=== PATIENT | male | born 1985 | race Caucasian/White ===

== ENCOUNTER 2024-04-16 09:30 | Emergency (ER) | payer OTHER, SELFPAY ==
--- NOTE | 2024-04-16 09:35 | ED_ITS ---
HPI - URI/Sore Throat General Chief Complaint: Upper Respiratory Infection Stated Complaint: flu symptoms Time Seen by Provider: 04/16/24 09:35 Source: patient Mode of arrival: ambulatory Limitations: no limitations History of Present Illness HPI Narrative: Kevon is a 39-year-old male patient presenting to the clinic today with complaints of possible flu like symptoms. He reports he has nausea, body aches, chills, fever, and cough. States symptoms have been going on for approximately 2 days. He denies any chest pain or shortness of breath. MD elicited complaint: fever, cough and nasal congestion Related Data Allergies Allergy/AdvReac Type Severity Reaction Status Date / Time No Known Allergies Allergy Verified 04/16/24 09:41 Review of Systems Review of Systems: Pertinent positives per HPI. Patient denies any rash, headache, visual changes, dizziness, shortness of breath, chest pain, palpitations, nausea, vomiting, diarrhea, constipation, abdominal pain, or any urinary issues. PMFSH Comments At the time of my signature, I reviewed and agree with the nursing past medical, surgical, social, and family history. There is no relevant family history pertinent to the patient complaint. Exam Narrative: General: Well-developed, well nourished, in no apparent distress Head: Normocephalic, atraumatic Eyes: Pupils equally round and reactive to light bilaterally, EOM intact, sclera and conjunctive clear, no discharge, lids normal Ears: TMs intact and clear, ear canals clear, no drainage, grossly hearing normal. Nose: Nares patent, clear nasal discharge, no inflammation, no sinus tenderness. Mouth: Oral pharynx without lesions or masses, good dentition, MMM. Postnasal drip Neck: Supple, trachea midline, no enlargement of anterior or posterior cervical nodes, no thyroid masses or goiter palpable. Cardio: Regular rate and rhythm, s1 and s2 normal, no murmur appreciated. Resp: Clear to auscultation bilaterally, no rhonchi, rales, wheezing or rubs Course Course Emergency Course: Portions of this record may have been created with voice recognition software. Level of Care: Express Care Visit Vital Signs Vital signs: Vital Signs Temperature 37.8 C H 04/16/24 09:42 Pulse Rate 79 04/16/24 09:42 Respiratory Rate 18 04/16/24 09:42 Blood Pressure 118/59 L 04/16/24 09:42 Pulse Oximetry 100 04/16/24 09:42 Oxygen Delivery Room Air 04/16/24 09:42 Temperature 37.8 C H 04/16/24 09:42 Pulse Rate 79 04/16/24 09:42 Respiratory Rate 18 04/16/24 09:42 Blood Pressure 118/59 L 04/16/24 09:42 Pulse Oximetry 100 04/16/24 09:42 Oxygen Delivery Room Air 04/16/24 09:42 Vital signs reviewed MDM - URI/Sore Throat MDM Narrative Medical decision making narrative: At the time of visit patient is resting comfortably on the exam table. Patient appears to be nontoxic. Labs: Influenza testing was positive for influenza A. Plan: Patient has influenza A he. Prescription for Tamiflu was sent to the pharmacy. Risk and benefits of this medication was reviewed with the patient he voiced understanding and would like this medication prescribed. Supportive measures were discussed with the patient and they voiced understanding discharge instructions and agrees to treatment plan. Return precautions reviewed Differential Diagnosis Differential diagnosis: Likely upper respiratory infection, otitis media, sinusitis, viral infection, bronchitis, influenza, pharyngitis and other (COVID) Discharge Plan Discharge Clinical Impression: Influenza A Patient Disposition: Home, Self-Care Condition: Stable Instructions: Antibiotic Form, Influenza (ED) Additional Instructions: Influenza A testing was positive in the clinic today. Take prescription medications only as prescribed- Tamiflu Increase fluids and stay well hydrated Tylenol/motrin for pain/fever Flonase and OTC antihistamines as directed Vicks vapor rub to open sinuses Sinus rinses for congestion Cepacol spray, cough drops, throat lozenges, warm tea with honey/lemon, gargle salt water to soothe throat BRAT diet for diarrhea Clear liquids x 24 hours then advance as tolerated for nausea/vomiting Go to the ED if you develop a worsening in your condition- high fever not controlled by Tylenol or Motrin, dehydration, weakness, lethargy, shortness of breath, or chest pain. Follow up with your PCP in 3-5 days if symptoms persist. Patient Language: New Zealander Prescriptions: New oseltamivir [Tamiflu] 75 mg capsule 75 mg PO Q12H 5 Days Qty: 10 0RF Follow-up/Referrals: Rhonda,DO Maria De Jesus [Primary Care Provider] - Time of Disposition: 09:49 Quality NIHSS Nursing Documentation ED NIHSS nursing documentation: reviewed/agree
[2024-04-16 09:42] VITALS: BP 118/59; PULSE 79; RESP 18; TEMP 37.8; O2SAT 100
--- OUTSIDE RECORDS SUMMARY | 2024-04-16 09:52 | XMS_ITS | Patient Health Summary ---
Author Organization [facility] Address [address] [place] [address] Care Team Providers Care Buildings And Grounds Director Name Role Phone Unavailable Primary Care Provider Unavailabl e Note from [facility],non-owned Affiliates and Associated Physician Practices is amultiple site organization consisting of ambulatory clinics and hospital sitesin [place], [place], [place] and [place]. This disclosure is being madepursuant to the Care Everywhere program and may not contain all information available regarding this patient. Last updated 17.[facility] Social History Tobacco Use Types Packs/Day Years Used Date Smoking Tobacco: Never Assessed Sex and Gender Information Value Date Recorded Sex Assigned at Not on file Gender Identity Not on file Sexual Orientation Not on file
--- OUTSIDE RECORDS SUMMARY | 2024-04-16 09:52 | XMS_ITS | Referral Summary ---
Author Organization [facility] Address [address] [place] [address] Care Team Providers Care Nursing Tech Name Role Phone Unavailable Primary Care Provider Unavailabl e Source Comments [facility],non-owned Affiliates and Associated Physician Practices is amultiple site organization consisting of ambulatory clinics and hospital sitesin [place], [place], [place] and [place]. This disclosure is being madepursuant to the Care Everywhere program and may not contain all information available regarding this patient. Last updated 17.[facility] [employer] Social History Tobacco Use Types Packs/Day Years Used Date Smoking Tobacco: Never Assessed Sex and Gender Information Value Date Recorded Sex Assigned at Not on file Gender Identity Not on file Sexual Orientation Not on file Plan of Treatment Not on file
--- OUTSIDE RECORDS SUMMARY | 2024-04-16 09:52 | XMS_ITS | Encounter Summary ---
Author Organization [facility] Address [facility] [place] [address] Care Team Providers Care Oysterman Name Role Phone Marjorie Hurt MD Unavailable Satya Riley DO Primary Care Provider [phone] Maria De Jesus Ellis DO Primary Care Provider [phone] Encounter Details Date Type Department Care Team (Late st Contact Info) Description 08/19/2020 VILOOP Message Enc [facility] Medical Group Multispecialty Care - [facility] [address], [address] [place] [address] [employer] [employer], [facility] Provider appointment Social History Tobacco Use Types Packs/Day Years Used Date Smoking Tobacco: Never Smokeless Tobacco: Never Alcohol Use Standard Drinks/Week Comments Yes 6 (1 standard drink = 0.6 oz pur e alcohol) PHQ-2 Answer Date Recorded PHQ-2 Score - If the patient scores above 3, please move on to questions 3-9 0 11/05/2019 Sex and Gender Information Value Date Recorded Sex Assigned at Not on file Legal Sex Male 6:16 PM CDT Gender Identity Not on file Sexual Orientation Not on file Occupation Industry Job Start Date Job End Date Not on file Not on file Not on file Not on file COVID-19 Exposure Response Date Recorded In the last month, have you been in contact with someone who was confirmed or suspected to have Coronavirus / COVID-19? No / Unsure 07/28/2020 8:24 AM CDT documented as of this encounter Functional Status * RETIRED Are you deaf or do you have serious difficulty hearing Answer Date of Assessment Author Status No 11/26/2019 11:00 PM CDT Acti ve * RETIRED Are you blind or do you have serious difficulty seeing, even when wearing glasses? Answer Date of Assessment Author Status No 11/26/2019 11:00 PM CDT Acti ve * Do you have serious difficulty walking or climbing stairs? Answer Date of Assessment Author Status No 11/26/2019 11:00 PM CDT Faiza Crews RN Active * Do you have difficulty dressing or bathing? Answer Date of Assessment Author Status No 11/26/2019 11:00 PM CDT Faiza Crews RN Active * Because of a physical, mental, or emotional condition, do you have difficulty doing errands alone such as visiting a doctor's office or shopping? Answer Date of Assessment Author Status No 11/26/2019 11:00 PM CDT Faiza Crews RN Active documented as of this encounter Mental Status * Because of a physical, mental, or emotional condition, do you have serious difficulty concentrating, remembering, or making decisions? Answer Entry Date Author Status No 11/26/2019 11:00 PM CDT Faiza Crews RN Active documented in this encounter Plan of Treatment Upcoming Encounters Date Type Department Care Team (Late st Contact Info) Description 11/09/2024 8:00 AM CDT Office Visit [facility] THREE [facility], [address] [place], [place] [phone] Marjorie Hurt MD [facility]. 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 [address] [place], [place] [phone] PCP - General FAMILY PRACTICE 05/08/19 02/20/22 Maria De Jesus Ellis DO [address] [place] [address] PCP - General FAMILY PRACTICE 03/29/22 Marjorie Hurt MD [facility]. [place] [id number] [place], [place] [phone] EP Screen Printing Press Operator CLINICAL CARDIAC ELECTROPHYSIOLOGY 02/21/17 documented as of this encounter
--- OUTSIDE RECORDS SUMMARY | 2024-04-16 09:52 | XMS_ITS | Encounter Summary ---
Author Organization [facility] Address [facility] [place] [address] Care Team Providers Care Store Cashier Name Role Phone Marjorie Hurt MD Unavailable Satya Riley DO Primary Care Provider [phone] Maria De Jesus Ellis DO Primary Care Provider [phone] Encounter Details Date Type Department Care Team (Late st Contact Info) Description 12/20/2019 [employer] Message Enc [facility] Physical Therapy [address] [place] [address] Mandi Lombardo, PT [place], [place] [phone] RE: Other Social History Tobacco Use Types Packs/Day Years [...] have Coronavirus / COVID-19? No / Unsure 12/22/2019 9:27 AM CDT documented as of this encounter [...] CDT Office Visit [facility], [facility] [address] [place] [address] Marjorie Hurt MD Three [facility]. 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 [address] [place], [place] [phone] PCP - General FAMILY PRACTICE 05/08/19 02/20/22 Maria De Jesus Ellis DO [address] [place], [place] [phone] PCP - General FAMILY PRACTICE 03/29/22 Marjorie Hurt MD [address] [place], [place] [phone] EP Bessemer Converter Operator CLINICAL CARDIAC ELECTROPHYSIOLOGY 02/21/17 documented as of this encounter
--- OUTSIDE RECORDS SUMMARY | 2024-04-16 09:52 | XMS_ITS | Encounter Summary ---
Author Organization [facility] Address [address] [place] [address] Care Team Providers Care Business Performance Advisor Name Role Phone Marjorie Hurt MD Unavailable Satya Riley DO Primary Care Provider [phone] Maria De Jesus Ellis DO Primary Care Provider [phone] Encounter Details Date Type Department Care Team (Late st Contact Info) Description 12/28/2019 Car Rentals Market Message Enc [facility] Medical Group Family Medicine - [place] [address], [address] [place] [address] Satya Riley, DO [address] [place], [place] [phone] RE: Medication Questions Social History Tobacco Use Types Packs/Day Years [...] have Coronavirus / COVID-19? No / Unsure 12/31/2019 9:30 AM CDT documented as of this encounter [...] Crews RN Active documented in this encounter Progress Notes * Satya Riley DO - 12/29/2019 7:49 AM CDT Ariadna, Please look into this prior auth today as a priority. Thank you. documented in this encounter Plan of Treatment Upcoming Encounters Date Type Department Care Team (Late st Contact Info) Description 11/09/2024 8:00 AM CDT Office Visit [facility], [address] [place] [address] Marjorie Hurt MD Three [facility]. 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 [address] [phone] PCP - General FAMILY PRACTICE 05/08/19 02/20/22 [place] [address] [place] [phone] PCP - General FAMILY PRACTICE 03/29/22 Marjorie Hurt MD [facility]. [address] [address] EP Email Manager CLINICAL CARDIAC ELECTROPHYSIOLOGY 02/21/17 documented as of this encounter
--- OUTSIDE RECORDS SUMMARY | 2024-04-16 09:52 | XMS_ITS | Encounter Summary ---
Author Organization [facility] Address [facility] [place] [address] Care Team Providers Care Parachute Crown Sewer Name Role Phone Marjorie Hurt MD Unavailable Maria De Jesus Ellis DO Primary Care Provider [phone] Encounter Details Date Type Department Care Team (Late st Contact Info) Description 03/18/2023 Nativis Message Enc [facility] Medical Group Family Medicine - [place] [address] [facility] [place] [phone] Maria De Jesus Ellis DO [address] [place] [address] Rashy eyes Social History Tobacco Use Types Packs/Day Years Used Date Smoking Tobacco: Never Passive Smoke Exposure: Past Smokeless Tobacco: Never Comments:The provider can pr ovide you with more information about quitting. Alcohol Use Standard Drinks/Week Comments Yes 6.7 (1 standard drink = 0.6 oz p ure alcohol) PHQ-2 Answer Date Recorded Patient Health Questionnaire-2 Score 0 03/18/2023 Sex and Gender Information Value Date Recorded Sex Assigned at Not on file Legal Sex Male 6:16 PM CDT Gender Identity Not on file Sexual Orientation Not on file Occupation Industry Job Start Date Job End Date Not on file Not on file Not on file Not on file documented as of this encounter Functional Status [...] Assessment Author Status No 11/26/2019 11:00 PM FAMILIAT Faiza Crews RN Active * Do you [...] Date Author Status No 11/26/2019 11:00 PM FAMILIAT Faiza Crews RN Active documented in this encounter Plan of Treatment Upcoming Encounters Date Type Department Care Team (Late st Contact Info) Description 11/09/2024 8:00 AM CDT Office Visit [facility] [address] [place], [place] [phone] Marjorie Hurt MD [facility]. [facility] [address] [place], [place] [address] documented as of this encounter Visit Diagnoses Not on filedocumented in this encounter Additional Health Concerns Assessment Noted Time PHQ-9 Depression Total Score: 0 03/18/19 24 1:37 PM ADMISSION DISCHARGE RN documented as of this encounter Care Teams Parachute Crown Sewer Relationship Specialty Start Date End Date Maria De Jesus Ellis DO [address] [place] [phone] PCP - General FAMILY PRACTICE 03/29/22 Marjorie Hurt MD [facility]. [place] [id number] [place] [address] EP Injury/Safety Hazard Assessment CLINICAL CARDIAC ELECTROPHYSIOLOGY 02/21/17 documented as of this encounter
--- OUTSIDE RECORDS SUMMARY | 2024-04-16 09:52 | XMS_ITS | Encounter Summary ---
Author Organization [facility] Address [address] [place] [address] Care Team Providers Care Drum Plater Name Role Phone Marjorie Hurt MD Unavailable Maria De Jesus Ellis DO Primary Care Provider [phone] Encounter Details Date Type Department Care Team (Late st Contact Info) Description 01/07/2023 Travelata Message Enc [facility], [address] [place], [place] [phone] Marjorie Hurt MD Three [facility]. [facility] [address] [place] [address] Groin pain Social History Tobacco Use Types Packs/Day Years Used Date Smoking Tobacco: Never Passive Smoke Exposure: Past Smokeless Tobacco: Never Comments:The provider can pr ovide you with more information about quitting. Alcohol Use Standard Drinks/Week Comments Yes 6.7 (1 standard drink = 0.6 oz p ure alcohol) PHQ-2 Answer Date Recorded Patient Health Questionnaire-2 Score 0 04/17/2022 Sex and Gender Information Value Date Recorded [...] PM FAMILIAT Faiza Crews RN Active * Because of a physical, mental, or emotional condition, do you have difficulty doing errands alone such as visiting a doctor's office or shopping? Answer Date of Assessment Author Status No 11/26/2019 11:00 PM Faiza Doe RN Active documented as of this encounter Mental Status * Because of a physical, mental, or emotional condition, do you have serious difficulty concentrating, remembering, or making decisions? Answer Entry Date Author Status No 11/26/2019 11:00 PM Faiza Doe RN Active documented in this encounter Progress Notes * Arabella Parks - 01/10/2023 1:40 PM CST Patient had testing done CISE PLANNER * Arabella Parks - 01/08/2023 2:16 PM CST I left a voicemail for patient asking him to call me to schedule test CISE PLANNER * Kayleigh Latif RN - 01/08/2023 12:11 PM CST I informed the patient of the above information from Keiko QUAN. The patient verbalized understanding. The patient states that he will have throbbing, swelling, and surface irritation to the left groin. I informed the patient that the alumnae secretary will contact him to schedule the ultrasound. The patient had no further questions. Message to the alumnae secretary. CISE PLANNER * Keiko Box PA-C - 01/08/2023 12:02 PM CST We can always check an US of the groin for reassurance but he may just have scar tissue from that procedure which gets irritated off and on. No major concern if that is the case. Luna Aden CISE PLANNER * Kayleigh Latif RN - 01/08/2023 9:29 AM CST I called the patient to follow up on his concerns. I left a voicemail for the patient to call our office. The office number and my extension were provided. Message to Keiko JAMA CISE PLANNER documented in this encounter Plan of Treatment Upcoming Encounters Date Type Department Care Team (Late st Contact Info) Description 11/09/2024 8:00 AM CDT Office Visit [facility] THREE [facility], [address] [place] [address] Marjorie Hurt MD [facility]. [address] [place], [place] [address] documented as of this encounter Visit Diagnoses Not on filedocumented in this encounter Additional Health Concerns Assessment Noted Time PHQ-9 Depression Total Score: 0 04/17/19 8:07 AM EXERCISE PLANNER documented as of this encounter Care Teams Drum Plater Relationship Specialty Start Date End Date Maria De Jesus Ellis DO [address] [place], [place] [phone] PCP - General FAMILY PRACTICE 03/29/22 Marjorie Hurt MD Three [facility]. [address] [place], [place] [address] EP Manager Competitive Intelligence CLINICAL CARDIAC ELECTROPHYSIOLOGY 02/21/17 documented as of this encounter
--- OUTSIDE RECORDS SUMMARY | 2024-04-16 09:52 | XMS_ITS | Clinical Summary ---
Author Organization [facility] Address [address] [place] [address] Care Team Providers Care Fuel Cell Repairer Name Role Phone Marjorie Hurt MD Unavailable Maria De Jesus Ellis DO Primary Care Provider [phone] Allergies Active Allergy Reactions Criticality Noted Date Comments Diphenhydramine Unknown 02/22/2017 Unsure of he is- mom stated he was as child. Had a dose IV and tolerated well, no side effects Medications triamcinolone (KENALOG) 0.1 % creamIndications: Atopic dermatitis, unspecified type Apply topically 2 (two) times daily. Avoid face 80 g 04/17/19 23 Active pimecrolimus (ELIDEL) 1 % creamIndications: Atopic dermatitis, unspecified type Apply topically 2 (two) times daily. 30 g 04/17/19 23 Active cetirizine (ZYRTEC) 10 MG tabletIndications :Atopic dermatitis, unspecified type Take 1 tablet (10 mg total) by mouth daily. 30 tablet 2 04/17/19 23 Active hydrOXYzine (ATARAX) 10 MG tabletIndications :Situational anxiety Take 1 tablet (10 mg total) by mouth daily as needed for Anxiety. 30 tablet 10/24/19 23 Active clobetasol (TEMOVATE) 0.05 % ointmentIndicatio ns:Rash Use on the hands bid for 7 days 45 g 1 03/18/19 24 Active olopatadine (PATADAY) 0.2 % SolutionIndicatio ns:Rash Place 1 drop into both eyes daily. 2.5 mL 03/18/19 24 Active famotidine (PEPCID) 20 MG tabletIndications :Rash TAKE 1 TABLET(20 MG) BY MOUTH TWICE DAILY FOR 10 DAYS 20 tablet 04/05/19 Active meloxicam (MOBIC) 15 MG tablet Take 1 tablet (15 mg total) by mouth daily. with food. 05/17/19 Active TALTZ 80 MG/ML Solution Auto-injector every 28 days. 08/26/19 24 Active flecainide (TAMBOCOR) 50 MG tabletIndications :Mixed hyperlipidemia,PV C (premature ventricular contraction) Take 1 tablet by mouth twice daily 180 tablet 2 03/31/19 25 Active metoprolol succinate ER (TOPROL-XL) 25 MG 24 hr tabletIndications :Mixed hyperlipidemia,PV C (premature ventricular contraction) TAKE 2 TABLETS BY MOUTH IN THE EVENING NEEDED 180 tablet 2 03/31/19 25 Active rosuvastatin (CRESTOR) 20 MG tabletIndications :Mixed hyperlipidemia TAKE 1 TABLET BY MOUTH NIGHTLY AT BEDTIME 90 tablet 2 03/31/19 25 Active omeprazole (PRILOSEC) 40 MG capsule TAKE 1 CAPSULE(40 MG) BY MOUTH DAILY 30 capsule 8 04/06/19 25 Active omeprazole (PRILOSEC) 40 MG capsule Take 1 capsule (40 mg total) by mouth daily. 30 capsule 3 10/28/19 24 025 Discontinued rosuvastatin (CRESTOR) 20 MG tabletIndications :Mixed hyperlipidemia take 1 tablet by mouth nightly at bedtime 90 tablet 12/25/19 24 025 Discontinued metoprolol succinate ER (TOPROL-XL) 25 MG 24 hr tabletIndications :Mixed hyperlipidemia,PV C (premature ventricular contraction) TAKE 2 TABLETS BY MOUTH NIGHTLY NEEDED 180 tablet 12/25/19 24 025 Discontinued flecainide (TAMBOCOR) 50 MG tabletIndications :Mixed hyperlipidemia,PV C (premature ventricular contraction) Take 1 tablet by mouth twice daily 180 tablet 12/25/19 24 025 Discontinued Active Problems Problem Noted Date Diagnosed Date Pes planus of both feet 08/30/2020 Primary osteoarthritis of right knee 04/19/2020 Seasonal allergies 12/08/2019 DVT (deep venous thrombosis) ([facility]) 0 11/24/2019 S/P right knee arthroscopy 11/18/2019 Old peripheral tear of medial meniscus of right knee 11/05/2019 Peripheral tear of medial me niscus of left knee as current injury, initial encounter 09/10/2019 Patellar tendonitis of left knee 09/10/2019 Allergic rhinitis 05/19/2019 Hemorrhoids 05/19/2019 Mixed hyperlipidemia 05/19/2019 Eczema 05/19/2019 Tear of medial meniscus of r ight knee, current, unspecified tear type, initial encounter 08/26/2018 Palpitations 08/21/2016 PVC (premature ventricular contraction) Encounters Date Type Department Care Team Description 03/24/2024 Scan [facility] Scanned, [facility] 02/05/2024 Scan [facility] Scanned, [facility] Lab (SCAN) from Last 3 Months Immunizations Name Administration Dates Next Due Fluzone 6 Months+ Quad (0.5 mL Prefilled Syringe) 12/05/2020,12/08/2019 Influenza (Generic) 12/20/2016,04/26/2016 Influenza Adult (Generic) 01/13/2019,12/27/2017, 12/09/2014 MMR 11/15/1992 MMR (Generic) 11/15/1992 Td (Tenivac) preservative free 10/26/1997 Family History Medical History Relation Comments Cancer Father esophageal Diabetes Father Heart Attack Father Heart Disease Father Hypertension Father Arthritis Mother Diabetes Mother Heart Disease Mother Hypertension Mother Relation Status Comments Father Alive Mother Alive Social History Tobacco Use Types Packs/Day Years Used Date Smoking Tobacco: Never Passive Smoke Exposure: Past Smokeless Tobacco: Never Tobacco Cessation:Counseling Given: No Comments:The provider can provide you with more information about quitting. Alcohol [...] file Not on file Not on file Last Filed Vital Signs Vital Sign Reading Time Taken Comments Blood Pressure 132/84 10/28/2023 9:14 AM CDT Pulse 64 10/28/2023 9:14 AM CDT Temperature 36.5 C (97.7 F) 06/12/2023 7:11 AM CDT Respiratory Rate 16 03/19/2023 10:13 AM BREAKFAST SERVER Oxygen Saturation 97% 10/28/2023 9:14 AM CDT Inhaled Oxygen Concentration - - Weight 90.3 kg (199 lb) 10/28/2023 9:14 AM CDT Height 180.3 cm (5' 11 ) 10/28/2023 9:14 AM CDT Body Mass Index 27.75 10/28/2023 9:14 AM CDT Plan of Treatment Upcoming Encounters Date Type Department Care Team (Late st Contact Info) Description 11/09/2024 8:00 AM CDT Office Visit [facility] [address] [place], [place] [phone] Marjorie Hurt MD Three [facility]. [facility] [address] [place], [place] [phone] Health Maintenance Due Date Last Done Comments Annual Physical 1986 DTaP, Tdap and Td Vaccines (2 - Tdap) 10/27/1997 10/26/1997 Hepatitis B Vaccines (1 of 3 - 19+ 3-dose series) 2002 COVID-19 Vaccine (4 - season) 2023 07/23/2021, 05/31/2020, 05/03/2020 Influenza Adult (#1) 2023 12/05/2020, 12/08/2019, 01/13/2019, Additional history exists PHQ-2 (Physician [place]) 03/04/2024 03/18/2023 Pneumococcal Vaccine: Pediatrics (0 to 5 Years) and At-Risk Patients (6 to 64 Years) (1 of 2 - PCV) 05/11/2048 Postponed from 1989 (Per Provider Recommendation) Hepatitis C Completed 08/22/2022 HPV Vaccines Aged Out No longer eligi ble based on patient's age to complete this topic Meningococcal B Vaccine Aged Out No l onger eligible based on patient's age to complete this topic Meningococcal Vaccine Aged Out No junior cathy eligible based on patient's age to complete this topic RSV Immunizations Under 20 Months Aged Out No longer eligible based on patient's age to complete this topic Medical Devices Implanted Type Area Bevel Operator Device Identifier Shelf Expiration Date Model / Serial / Lot Truespan Meniscal Repair System Implanted:Qty: 1 on 11/18/2019 by Nithin Sewell MD at [facility] Right: Knee [employer] [id number] 06/01/2022 [id number] / / [id number] Truespan Meniscal Repair System Implanted:Qty: 1 on 11/18/2019 by Nithin Sewell MD at [facility] Right: Knee [employer] [id number] 08/01/2022 [id number] / / [id number] Truespan Meniscal Repair System Implanted:Qty: 2 on 11/18/2019 by Nithin Sewell MD at [facility] Right: Knee [employer] 05/01/2022 [id number] / / [id number] Truespan Meniscal Repair System Implanted:Qty: 1 on 11/18/2019 by Nithin Sewell MD at [facility] Right: Knee [employer] 04/03/2022 [id number] / / [id number] [place] Arthrex Pushlock Biocomposite 2.9 X 12.5mm - [id number] Implanted:Qty: 1 on 11/18/2019 by Nithin Sewell MD at [facility] Right: Knee [employer] 08/01/2021 [id number] / / [id number] [place] Arthrex Pushlock Biocomposite 2.9 X 12.5mm - [id number] Implanted:Qty: 1 on 11/18/2019 by Nithin Sewell MD at [facility] Right: Knee [employer] 07/01/2021 [id number] / / [id number] Procedures Procedure Name Priority Date/Time Associated Diagnosis Comments OUTSIDE LAB (SCAN ORDER) 02/05/2024 HEPATITIS PANEL,ACUTE Routine 08/22/2022 4:18 PM CDT Acute diarrhea from Last 3 Months or Most Recently Relevant to Health Maintenance Results * OUTSIDE LAB (SCAN ORDER) (02/05/2024) 02/05/2024 [facility] Scanned SCANNING Final Resu lt * HEPATITIS PANEL,ACUTE (08/22/2022 4:18 PM CDT) HEPATITIS B SURFACE AG NON-REACTI VE NON-REACTI VE 08/22/2022 8:[address] [facility] HEP B CORE IGM NON-REACTI VE NON-REACTI VE 08/22/2022 8:[address] [facility] HAV IGM NON-REACTI VE NON-REACTI VE 08/22/2022 8:[address] [facility] HEPATITIS C AB NON-REACTI VE NON-REACTI VE 08/22/2022 8:[address] [facility] 08/22/2022 4:18 PM CDT us Maria De Jesus Rhonda DO LABORATORY Final Result [facility] [address] [place] [address], [place] [phone] from Last 3 Months or Most Recently Relevant to Health [place] [address] Advance Directives * Full Code (Latest Code Status on File) Date Activated Date Inactivated Comments 11/24/2019 9:10 PM 11/27/2019 3:37 PM * Full Code Date Activated Date Inactivated Comments 08/08/2018 7:14 AM 08/08/2018 1:21 PM Care Teams Fuel Cell Repairer Relationship Specialty Start Date End Date Maria De Jesus Ellis DO [address] [place] [id number] PCP - General FAMILY PRACTICE 03/29/22 Marjorie Hurt MD [facility] [address] [place], [place] [address] EP Tire Tester CLINICAL CARDIAC ELECTROPHYSIOLOGY 02/21/17
--- OUTSIDE RECORDS SUMMARY | 2024-04-16 09:52 | XMS_ITS | Encounter Summary ---
Author Organization [facility] Address [facility] [place] [address] Care Team Providers Care Manager Land Name Role Phone Colleen Cortes NP Primary Care Provider [phone] Marjorie Hurt MD Unavailable Satya Riley DO Primary Care Provider [phone] Maria De Jesus Ellis DO Primary Care Provider [phone] Encounter Details Date Type Department Care Team (Late st Contact Info) Description 07/14/2018 Abstract [facility] at [address] [address] Yulia Zamarripa MA Social History Tobacco Use Types Packs/Day Years Used Date Smoking Tobacco: Never Smokeless Tobacco: Never Alcohol Use Standard Drinks/Week Comments Yes 0 (1 standard drink = 0.6 oz pur e alcohol) 4-6 a week Sex and Gender Information Value Date Recorded Sex Assigned at Not on file Legal Sex Male 6:16 PM CDT Gender Identity Not on file Sexual Orientation Not on file Occupation Industry Job Start Date Job End Date Not on file Not on file Not on file Not on file documented as of this encounter Plan of Treatment Upcoming Encounters Date Type Department Care Team (Late Contact Info) Description 11/09/2024 8:00 AM CDT Office Visit [facility] [address] Marjorie Hurt MD Three [address] [address] documented as of this encounter Procedures Procedure Name Priority Date/Time Associated Diagnosis Comments CBC (OUTSIDE LAB) Routine 01/28/2018 LIPID PANEL Routine 01/28/2018 HEPATIC FUNCTION PANEL Routine 01/28/2018 documented in this encounter Results * HEPATIC FUNCTION PANEL (01/28/2018) ALBUMIN S/P/B 4.7 3.5 - 5.0 ALKALINE PHOSPHATASE S/P/B 38 ALT 56 AST 30 BILIRUBIN DIRECT S/P/B 0.1 BILIRUBIN TOTAL S/P/B 0.7 TOTAL PROTEIN S/P/B 6.8 01/28/2018 us Doc [facility] Abstract LABORATORY Final Result * LIPID PANEL (01/28/2018) CHOLESTEROL 198 HDL 39 TRIGLYCERIDES 195 NON HDL CHOLESTEROL 159 LDL (CALCULATED) 128 01/28/2018 us Doc [facility] Abstract LABORATORY Final Result * CBC (OUTSIDE LAB) (01/28/2018) WBC 4.3 HGB 15.3 HCT 44.4 PLT 233 01/28/2018 us Doc [facility] Abstract LAB-OUTSIDE/ABSTRACTED Edite d Result - Final documented in this encounter Visit Diagnoses Not on filedocumented in this encounter Additional Health Concerns Infection Onset Date Last Indicated Resolved Time COVID-19 Rule Out 11/15/2019 11/15/2019 11/16/2019 3:22 PM CDT COVID-19 Rule Out 03/09/2021 03/09/2021 03/09/2021 2:44 PM FURNITURE MAKER documented as of this encounter Care Teams Manager Land Relationship Specialty Start Date End Date Colleen Cortes NP [address] [place] [address] PCP - General NURSE PRACTITIONER 02/19/17 05/07/19 Satya Riley DO Three [facility]. [facility] [address] [place], [place] [phone] PCP - General FAMILY PRACTICE 05/08/19 02/20/22 Maria De Jesus Ellis DO [address] [place], [place] [phone] PCP - General FAMILY PRACTICE 03/29/22 Marjorie Hurt MD Three [facility]. [facility] [address] [place], [place] [phone] EP Blood And Plasma Laboratory Assistant CLINICAL CARDIAC ELECTROPHYSIOLOGY 02/21/17 documented as of this encounter
--- OUTSIDE RECORDS SUMMARY | 2024-04-16 09:52 | XMS_ITS | Encounter Summary ---
Author Organization [facility] Address [facility] [place] [address] Care Team Providers Care Audiometrist Name Role Phone Marjorie Hurt MD Unavailable Satya Riley DO Primary Care Provider [phone] Maria De Jesus Ellis DO Primary Care Provider [phone] Encounter Details Date Type Department Care Team (Late st Contact Info) Description 11/11/2019 Prep for Procedure [facility] [address] [place] [address] Nithin Sewell MD [address] [address] [place], [place] [phone] Social History Tobacco Use Types Packs/Day Years Used Date Smoking Tobacco: Never Smokeless Tobacco: Never Alcohol Use Standard Drinks/Week Comments Yes 0 (1 standard drink = 0.6 oz pur e alcohol) 4-6 a week PHQ-2 Answer Date Recorded PHQ-2 Score - [...] have Coronavirus / COVID-19? No / Unsure 11/11/2019 11:38 AM CDT documented as of this encounter Functional Status * RETIRED Are you deaf or do you have serious difficulty hearing Answer Date of Assessment Author Status No 08/07/2018 6:23 PM CDT Activ e * RETIRED Are you blind or do you have serious difficulty seeing, even when wearing glasses? Answer Date of Assessment Author Status No 08/07/2018 6:23 PM CDT Activ e * Do you have serious difficulty walking or climbing stairs? Answer Date of Assessment Author Status No 08/07/2018 6:23 PM CDT Narciso Gordon, ADELITA Active * Do you have difficulty dressing or bathing? Answer Date of Assessment Author Status No 08/07/2018 6:23 PM CDT Narciso Gordon, ADELITA Active * Because of a physical, mental, or emotional condition, do you have difficulty doing errands alone such as visiting a doctor's office or shopping? Answer Date of Assessment Author Status No 08/07/2018 6:23 PM CDT Narciso Gordon, RN Active documented as of this encounter Mental Status * Because of a physical, mental, or emotional condition, do you have serious difficulty concentrating, remembering, or making decisions? Answer Entry Date Author Status No 08/07/2018 6:23 PM CDT Narciso Gordon, RN Active documented in this encounter Plan of Treatment Upcoming Encounters Date Type Department Care Team (Late st Contact Info) Description 11/09/2024 8:00 AM CDT Office Visit [facility], [facility] [address] [place] [address] Marjorie Hurt MD [facility]. [facility] [address] [place] [address] documented as of this encounter Results * PRE-SURGICAL/PRE-PROCEDURE CORONAVIRUS (COVID 19) (11/15/2019 10:00 AM CDT) CORONAVIRUS SARS COV 2 PCR (RESP) NOT DETECTED NOT DETECTED 11/16/2019 3:21 PM CDT [facility] Comment: A Not Detected (negative) test result for this test means that SARS- CoV-2 RNA was not present in the specimen above the limit of detection. A negative result does not rule out the possibility of COVID-19 and should not be used as the sole basis for treatment or patient management decisions. If COVID-19 is still suspected, based on exposure history together with other clinical findings, re-testing should be considered in consultation with public health authorities. Laboratory test results should always be considered in the context of clinical observations and epidemiological data in making a final diagnosis and patient management decisions. Please review the Fact Sheets and FDA authorized labeling available for health care providers and patients using the following websites: https://www.Chromatin.Seek & Adore/home/Covid-19/HCP/NAAT/fact-sheet2 https://www.Chromatin.Seek & Adore/home/Covid-19/Patients/NAAT/ fact-sheet2 This test has been authorized by the FDA under an Emergency Use Authorization (EUA) for use by authorized laboratories. Due to the current public health emergency, [facility] is receiving a high volume of samples from a wide variety of swabs and media for COVID-19 testing. In order to serve patients during this public health crisis, samples from appropriate clinical sources are being tested. Negative test results derived from specimens received in non-commercially manufactured viral collection and transport media, or in media and sample collection kits not yet authorized by FDA for COVID-19 testing should be cautiously evaluated and the patient potentially subjected to extra precautions such as additional clinical monitoring, including collection of an additional specimen. Methodology: Nucleic Acid Amplification Test (NAAT) includes PCR or TMA Additional information about COVID-19 can be found at the [facility] website: www.Trendrating.Seek & Adore/Covid19. Test performed at [facility] [address] [place] [address] Director: BRIAN ARNOLD DO,MPH FIRST TEST YES 11/15/2019 8:28 AM CDT [facility] EMPLOYED IN HEALTHCARE NO 11/15/2019 8:28 AM CDT [facility] SYMPTOMATIC DEFINED BY CDC NO 11/15/2019 8:28 AM T [facility] DATE OF SYMPTOM ONSET UNKNOWN 11/15/2019 1:14 PM CDT [facility] HOSPITALIZATION STATUS NO 11/15/2019 8:28 AM CDT [facility] PATIENT IN ICU NO 11/15/2019 8:28 AM CDT [facility] RESIDENT OF CONGREGATE CARE NO 11/15/2019 8:28 AM CDT [facility] NO 11/15/2019 1:14 PM CDT [facility] PATIENT'S RACE WHITE OR 11/15/2019 8:28 AM CDT [facility] ETHNICITY NONHISPANIC 11/15/2019 8:28 AM CDT [facility] SOURCE (QST) NASOPHARYNGEAL SWAB 11/15/2019 8:28 AM CDT [facility] NASOPHARYNGEAL SWAB / Unknown 11/15/2019 10:00 AM CDT us Nithin Sewell MD MICROBIOLOGY - [facility] Final Result [facility] [address] [place] [address], [place] [address] documented in this encounter Visit Diagnoses Diagnosis Preop examination- Primary Preoperative examination, unspecified documented in this encounter Additional Health Concerns Infection Onset Date Last Indicated Resolved Time COVID-19 Rule Out 11/15/2019 11/15/2019 11/16/2019 3:22 PM CDT COVID-19 Rule Out 03/09/2021 03/09/2021 03/09/2021 2:44 PM 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 [facility] [address] [place] [address] PCP - General FAMILY PRACTICE 05/08/19 02/20/22 Maria De Jesus Ellis DO [address] [place] [address] PCP - General FAMILY PRACTICE 03/29/22 Marjorie Hurt MD [facility] [address] [place] [address] EP Emergency Room Rn CLINICAL CARDIAC ELECTROPHYSIOLOGY 02/21/17 documented as of this encounter
--- OUTSIDE RECORDS SUMMARY | 2024-04-16 09:52 | XMS_ITS | Encounter Summary ---
Author Organization [facility] Address [facility] [place] [address] Care Team Providers Care Ornamental Plasterer Helper Name Role Phone Colleen Cortes NP Primary Care Provider [phone] Marjorie Hurt MD Unavailable Satya Riley DO Primary Care Provider [phone] Maria De Jesus Ellis DO Primary Care Provider [phone] Encounter Details Date Type Department Care Team (Late st Contact Info) Description 08/19/2018 niiu Message Enc [facility] at [facility], [facility] [address] [place] [address] Marjorie Hurt MD [facility]. [facility] [address] [place] [address] Test Results Social History Tobacco Use Types Packs/Day Years [...] 6:23 PM CDT Narciso Gordon, RN Active * Do you have difficulty dressing or bathing? Answer Date of Assessment Author Status No 08/07/2018 6:23 PM CDT Narciso Gordon, RN Active * Because of a physical, mental, or emotional condition, do you have difficulty doing errands alone such as visiting a doctor's office or shopping? Answer Date of Assessment Author Status No 08/07/2018 6:23 PM FAMILIAT Narciso Gordon, RN Active documented as of [...] Description 11/09/2024 8:00 AM CDT Office Visit [facility], [facility] [address] [place] [address] Marjorie Hurt MD [facility]. [facility] [address] [place] [address] documented as of this encounter Visit Diagnoses Not on filedocumented in this encounter Additional Health Concerns Infection Onset Date Last Indicated Resolved Time COVID-19 Rule Out 11/15/2019 11/15/2019 11/16/2019 3:22 PM CDT COVID-19 Rule Out 03/09/2021 03/09/2021 03/09/2021 2:44 PM TELEPHONE DIAPHRAGM ASSEMBLER documented as of this encounter Care Teams Ornamental Plasterer Helper Relationship Specialty Start Date End Date Colleen Cortes NP [address] [place] [address] PCP - General NURSE PRACTITIONER 02/19/17 05/07/19 Satya Riley DO Three [facility]. [address] [phone] PCP - General FAMILY PRACTICE 05/08/19 02/20/22 [place] [address] [place] [phone] PCP - General FAMILY PRACTICE 03/29/22 Marjorie Hurt MD [address] [phone] EP Pan Tank Worker CLINICAL CARDIAC ELECTROPHYSIOLOGY 02/21/17 documented as of this encounter
--- OUTSIDE RECORDS SUMMARY | 2024-04-16 09:52 | XMS_ITS | Encounter Summary ---
Author Organization [facility] Address [place] [address] Care Team Providers Care Piledriver Carpenter Name Role Phone Colleen Cortes NP Primary Care Provider [phone] Marjorie Hurt MD Unavailable Satya Riley DO Primary Care Provider [phone] Maria De Jesus Ellis DO Primary Care Provider [phone] Encounter Details Date Type Department Care Team (Late st Contact Info) Description 08/03/2018 Hospital Orders Only [facility] [place] [address] Marjorie Hurt MD Three [facility]. [facility] [address] [place] [address] Social History Tobacco Use Types Packs/Day Years [...] Description 11/09/2024 8:00 AM CDT Office Visit [facility] THREE [facility], [facility] [address] [place], [place] [address] Marjorie Hurt MD Three [facility]. [facility] [address] [place], [place] [address] documented as of this encounter Visit Diagnoses Not on filedocumented in this encounter Additional Health Concerns Infection Onset Date Last Indicated Resolved Time COVID-19 Rule Out 11/15/2019 11/15/2019 11/16/2019 3:22 PM CDT COVID-19 Rule Out 03/09/2021 03/09/2021 03/09/2021 2:44 PM DEMAND PLANNING MANAGER documented as of this encounter Care Teams Piledriver Carpenter Relationship Specialty Start Date End Date Colleen Cortes NP [address] [place] [address] PCP - General NURSE PRACTITIONER 02/19/17 05/07/19 Satya Riley DO Three [facility]. [facility] [address] [place], [place] [address] PCP - General FAMILY PRACTICE 05/08/19 02/20/22 Maria De Jesus Ellis DO [address] [place], [place] [phone] PCP - General FAMILY PRACTICE 03/29/22 Marjorie Hurt MD Three [facility]. [facility] [address] [place], [place] [address] EP Distillery Laborer CLINICAL CARDIAC ELECTROPHYSIOLOGY 02/21/17 documented as of this encounter
--- OUTSIDE RECORDS SUMMARY | 2024-04-16 09:52 | XMS_ITS | Encounter Summary ---
Author Organization [facility] Address [facility] [place] [address] Care Team Providers Care Search Engine Optimization Specialist Name Role Phone Marjorie Hurt MD Unavailable Satya Riley DO Primary Care Provider [phone] Maria De Jesus Ellis DO Primary Care Provider [phone] Encounter Details Date Type Department Care Team (Latest Contact Info) Description 10/18/2020 FamilyApp Message Enc [facility] Medical Group Multispecialty Care - [facility] [address] [facility] [address] [facility] [place] [address] Nithin Sewell MD [address] [facility] [address] [place], [place] [phone] RE: Follow Up/Update Social History Tobacco Use Types Packs/Day Years Used Date Smoking Tobacco: Never Smokeless Tobacco: Never Alcohol Use Standard Drinks/Week Comments Yes 6 (1 standard drink = 0.6 oz pur e alcohol) PHQ-2 Answer Date Recorded PHQ-2 Score - If the patient scores above 3, please move on to questions 3-9 0 08/30/2020 Sex and Gender Information Value Date Recorded [...] have Coronavirus / COVID-19? No / Unsure 10/06/2020 9:30 AM CDT documented as of this [...] 8:00 AM CDT Office Visit [facility] THREE [facility], [facility] [address] [place], [place] [phone] Marjorie Hurt MD Three [facility]. 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 [facility] [address] [place] [address] PCP - General FAMILY PRACTICE 05/08/19 02/20/22 [place] [address] [place] [id number] PCP - General FAMILY PRACTICE 03/29/22 Marjorie Hurt MD [facility]. [facility] [address] [place] [id number] EP Generator Assembler CLINICAL CARDIAC ELECTROPHYSIOLOGY 02/21/17 documented as of this encounter
--- OUTSIDE RECORDS SUMMARY | 2024-04-16 09:52 | XMS_ITS | Encounter Summary ---
Author Organization [facility] Address [facility] [place] [address] Care Team Providers Care Registered Nurse Surgical Services Name Role Phone Marjorie Hurt MD Unavailable Satya Riley DO Primary Care Provider [phone] Maria De Jesus Ellis DO Primary Care Provider [phone] Encounter Details Date Type Department Care Team (Late st Contact Info) Description 03/08/2021 [employer] Message Enc [facility] Medical Group Family Medicine - [place] [address] [place] [phone] Satya Riley, DO [address] [place], [place] [phone] Covid test Social History Tobacco Use Types Packs/Day Years Used Date Smoking Tobacco: Never Smokeless Tobacco: Never Comments:The provider can pr ovide you with more information about quitting. Alcohol Use Standard Drinks/Week Comments Yes 6 (1 standard drink = 0.6 oz pur e alcohol) PHQ-2 Answer Date Recorded PHQ-2 Score - If the patient scores above 3, please move on to questions 3-9 0 12/05/2020 Sex and Gender Information Value Date Recorded [...] have Coronavirus / COVID-19? No / Unsure 03/09/2021 10:30 AM ROCK CRUSHER documented as of this encounter Functional Status [...] CDT Office Visit [facility] THREE [facility], [facility] [address] [place], [place] [phone] Marjorie Hurt MD Three [facility]. [facility] [address] [place], [place] [phone] documented as of this encounter Visit Diagnoses Not on filedocumented in this encounter Additional Health Concerns Infection Onset Date Last Indicated Resolved Time COVID-19 Rule Out 03/09/2021 03/09/2021 03/09/2021 2:44 PM ROCK CRUSHER Assessment Noted Time PHQ-9 Depression Total Score: 0 12/06/19 4:23 PM CDT documented as of this encounter Care Teams Registered Nurse Surgical Services Relationship Specialty Start Date End Date Satya Riley DO [facility]. [address] [address] PCP - General FAMILY PRACTICE 05/08/19 02/20/22 [place] [address] [place] [phone] PCP - General FAMILY PRACTICE 03/29/22 Marjorie Hurt MD [facility]. [address] [phone] EP Investigator Utility Bill Complaints CLINICAL CARDIAC ELECTROPHYSIOLOGY 02/21/17 documented as of this encounter
--- OUTSIDE RECORDS SUMMARY | 2024-04-16 09:52 | XMS_ITS | Encounter Summary ---
Author Organization [facility] Address [facility] [place] [address] Care Team Providers Care Subway Operator Name Role Phone Marjorie Hurt MD Unavailable Satya Riley DO Primary Care Provider [phone] Maria De Jesus Ellis DO Primary Care Provider [phone] Encounter Details Date Type Department Care Team (Late st Contact Info) Description 04/04/2020 nTAG Interactivet Message Enc [facility] Medical Group Multispecialty Care - [facility] [address] [place] [address] Nithin Sewell MD [address] [facility] [address] [place], [place] [phone] RE: Other Social History Tobacco Use Types [...] have Coronavirus / COVID-19? No / Unsure 04/04/2020 5:21 PM ETCHER ELECTROLYTIC documented as of this encounter Functional Status [...] PM FAMILIAT Faiza Crews RN Active documented as of [...] CDT Office Visit [facility] THREE [facility], [facility] [address] [place] [address] Marjorie Hurt MD [facility]. [facility] [address] [place], [place] [phone] documented as of this encounter Visit Diagnoses Not on filedocumented in this encounter Additional Health Concerns Infection Onset Date Last Indicated Resolved Time COVID-19 Rule Out 03/09/2021 03/09/2021 03/09/2021 2:44 PM ETCHER ELECTROLYTIC documented as of this encounter Care Teams Subway Operator Relationship Specialty Start Date End Date Satya Riley DO Three [facility]. [address] [phone] PCP - General FAMILY PRACTICE 05/08/19 02/20/22 Maria De Jesus Ellis DO [address] [place] [phone] PCP - General FAMILY PRACTICE 03/29/22 Marjorie Hurt MD [address] [address] EP Gym Supervisor CLINICAL CARDIAC ELECTROPHYSIOLOGY 02/21/17 documented as of this encounter
--- OUTSIDE RECORDS SUMMARY | 2024-04-16 09:52 | XMS_ITS | Encounter Summary ---
Author Organization [facility] Address [facility] [place] [address] Care Team Providers Care Sugar Plantation Manager Name Role Phone Marjorie Hurt MD Unavailable Satya Riley DO Primary Care Provider [phone] Maria De Jesus Ellis DO Primary Care Provider [phone] Encounter Details Date Type Department Care Team (Late st Contact Info) Description 11/24/2019 [place] Message Enc [facility] Medical Group Multispecialty Care - [facility] [address] [place] [address] Nithin Sewell MD [address] [facility] [address] [place], [place] [phone] RE: Question Social History Tobacco Use Types Packs/Day Years [...] have Coronavirus / COVID-19? No / Unsure 11/24/2019 2:34 PM CDT documented as of this encounter Functional Status * Question Answer Date of Assessment Author Status Do you have serious difficulty walking or climbing stairs? No 11/26/2019 11:00 PM FAMILIAT Faiza Crews RN Active * Question Answer Date of Assessment Author Status Do you have difficulty dressing or bathing? No 11/26/2019 11:00 PM CDT Kassandra Crews, ADELITA Active Because of a physical, mental, or emotional condition, do you have difficulty doing errands alone such as visiting a doctor's office or shopping? No 11/26/2019 11:00 PM FAMILIAT Faiza Crews RN Active * RETIRED Are you deaf or do [...] Status No 08/07/2018 6:23 PM FAMILIAT Narciso Gordon RN Active * Do you have difficulty dressing or bathing? Answer Date of Assessment Author Status No 08/07/2018 6:23 PM CDT Narciso Gordon, RN Active * Because of a physical, mental, or emotional condition, do you have difficulty doing errands alone such as visiting a doctor's office or shopping? Answer Date of Assessment Author Status No 08/07/2018 6:23 PM CDT Narciso Gordon RN Active documented as of this encounter Mental Status * Question Answer Entry Date Author Status Because of a physical, mental, or emotional condition, do you have serious difficulty concentrating, remembering, or making decisions? No 11/26/2019 11:00 PM FAMILIAT Faiza Crews RN Active * Because of a physical, mental, or emotional condition, do you have serious difficulty concentrating, remembering, or making decisions? Answer Entry Date Author Status No 08/07/2018 6:23 PM CDT Heidi, Narciso D, RN Active documented in this encounter Plan of Treatment Upcoming Encounters Date Type Department Care Team (Late st Contact Info) Description 11/09/2024 8:00 AM CDT Office Visit [facility] [address] [place] [address] Marjorie Hurt MD [address] [place] [address] documented as of this encounter Visit Diagnoses Not on filedocumented in this encounter Additional Health Concerns Infection Onset Date Last Indicated Resolved Time COVID-19 Rule Out 03/09/2021 03/09/2021 03/09/2021 2:44 PM LEAF SIZE PICKER documented as of this encounter Care Teams Sugar Plantation Manager Relationship Specialty Start Date End Date Satya Riley DO [address] [place] [address] PCP - General FAMILY PRACTICE 05/08/19 02/20/22 Maria De Jesus Ellis DO [address] [place] [address] [place], [place] [address] PCP - General FAMILY PRACTICE 03/29/22 Marjorie Hurt MD [address] [place] [address] EP Backside Grinder CLINICAL CARDIAC ELECTROPHYSIOLOGY 02/21/17 documented as of this encounter
--- OUTSIDE RECORDS SUMMARY | 2024-04-16 09:52 | XMS_ITS | Encounter Summary ---
Author Organization [facility] Address [facility] [place] [address] Care Team Providers Care System Support Specialist Name Role Phone Marjorie Hurt MD Unavailable Satya Riley DO Primary Care Provider Maria De Jesus Ellis DO Primary Care Provider [phone] Encounter Details Date Type Department Care Team (Late st Contact Info) Description 06/17/2020 [employer] Message Enc [place] [facility] THREE [facility], [facility] [address] [place] [address] Marjorie Hurt MD [facility]. [facility] [address] [place] [address] RE: Other Social History Tobacco Use Types [...] have Coronavirus / COVID-19? No / Unsure 06/02/2020 9:14 AM CDT documented as of this encounter [...] encounter Progress Notes * Arabella Parks - 06/20/2020 3:29 PM CDT Called patient. Appt scheduled. * Kayleigh Latif RN - 06/17/2020 3:49 PM CDT contrib.comt message with the above information from Keiko QUAN sent to the patient. Message to the secretary receptionist. * Keiko Box PA-C - 06/17/2020 3:45 PM CDT Go ahead and move his appt up with me. Thanks Keiko documented in this encounter Plan of Treatment Upcoming Encounters Date Type Department Care Team (Late st Contact Info) Description 11/09/2024 8:00 AM CDT Office Visit [facility] THREE [facility], [address] [place] [address] Marjorie Hurt MD Three [facility]. [address] [place] [address] documented as of this encounter Visit Diagnoses Not on filedocumented in this encounter Additional Health Concerns Infection Onset Date Last Indicated Resolved Time COVID-19 Rule Out 03/09/2021 03/09/2021 03/09/2021 2:44 PM CHEMICAL MAKER documented as of this encounter Care Teams System Support Specialist Relationship Specialty Start Date End Date Satya Riley DO Three [facility]. [address] [place] [address] PCP - General FAMILY PRACTICE 05/08/19 02/20/22 Maria De Jesus Ellis DO [address] [facility] [address] [place], [place] [phone] PCP - General FAMILY PRACTICE 03/29/22 Marjorie Hurt MD Three [facility]. [address] [place], [place] [address] EP Space And Missile Operations Spacelift CLINICAL CARDIAC ELECTROPHYSIOLOGY 02/21/17 documented as of this encounter
--- OUTSIDE RECORDS SUMMARY | 2024-04-16 09:52 | XMS_ITS | Continuity of Care Document ---
Author Organization [facility] Address [address] [place] [address] Phone Care Team Providers Care Process Operator Name Role Phone Srikanth Calderon MD Unavailable Unavailable Allergies, Adverse Reactions, Alerts Substance Reaction Status Criticality No Known Allergies Active No Inform ation Medications Medication Instructions Dosage Effective Dates (start - stop) Status Comments metoprolol succinate ER 25 mg tablet,extended release 24 hr - Active flecainide 50 mg tablet - Active rosuvastatin 5 mg tablet - Active cetirizine 10 mg tablet take 1 tablet by oral route every day 10 MG - Active Claritin-D 24 Hour 10 mg-240 mg tablet,extended release take 1 tablet by oral route every day 1.00 tablet - Active acetaminophen 500 mg capsule take 2 capsule by oral route every 6 hours as needed 1000 MG - Active Procedures Procedure Date X-ray exam knee, 4+ views [facility] Advance Directives Directive Yes / No Effective Date File Name No Information Encounters Encounter Description Practice Location Reason(s) For Visit Diagnoses Date Provider Providers Copied on Encounter Office/outpat ient visit,[place], [facility], [address] [facility] [place], [place], [id number], [place] tel:[phone] [facility] right knee pain (chief complaint) Pain in right knee Yumiko Duke. [address] [facility], [address], [place], [place], [id number], [place]. tel:[phone] Family History Family Member Type Diagnosis Age At Onset Father Problem (finding) Diabetes Mother Problem (finding) Diabetes Mother Problem (finding) Heart Disease Father Problem (finding) Cancer, unknown Father Problem (finding) Heart Disease Payers Payer name Insurance type Covered democrat ID Mindy salmeron(s) Vamsi Linder [id number] Social History Type Description Quantity Date Captured Comments Alcohol Use Details Unknown Caffeine Use Details Unknown Tobacco Use Status Current non-smoker Smoking Status Never smoker Non-Smoking Tobacco Use Details : No Details Available : No Details Available Sex Male Vital Signs Date / Time: Height Weight BMI Pulse Rate Blood Pressure Temperature Respiratory Rate Body Surface Area Head Circumference Head Circ. Percentile Wt./Chai. Percentile BMI percentile Pulse Ox Inhaled Ox 8:13 AM 71.00 in 86.183 kg (190.00 lbs) 26.5 0 kg/m terryer (2) Chief Complaint And Reason For Visit From encounter dated '09/02/2020 08:15'. right knee pain (chief complaint). Description: Mr Cortes is a 35 year old male who complains of right knee pain. He presents with pain and swelling on the right side. He states that the symptoms have been chronic non-traumatic. The symptoms occur constantly with intermittent worsening. The problemis fluctuating. Currently the patient states that the symptoms are moderate-severe. The pain is described as aching, stabbing and throbbing. The symptoms occur with activity. The patient is experiencing pain in the following location: medially based on the right side. He rates his current pain as 8/10. The symptoms are aggravated by descending stairs, exercise, squatting, standing and walking. Sha ne states that the symptoms are relieved by ice, OTC medicines and rest. In addition to right knee pain the patient is also experiencing difficulty bending, locking and night pain. Pertinent negatives include chills, erythema, fever and tingling. The patient has had a previous x-ray. Prior NSAIDs include unspecified NSAIDS. He has been treated with visco (no relief) on the right side. Patient hashad previous therapy. He underwent what sounds like a meniscal repair, possibly a root, in November, He notes this was complicated by a post op DVT in his calf treated with Lovenox. No underlying known hypercoagulable state noted. He is not on anti-coagulation now. He does not recall any issues with wound drainage, infection, or stiffness post op out of what would be expected. Reason For Referral Reason For Referral No Information Plan Of Treatment Date Type Action Status Referral Ordered: X-ray exam knee, 4+ views RT knee ordered Referral Ordered: Arthrogram of knee joint RT knee ordered History Of Present Illness Encounter Date Complaint History Of Prese nt Illness right knee pain Mr Cortes is a [age] year old male who complains of right knee pain. He presents with pain and swelling on the right side. He states that the symptoms have been chronic non-traumatic. The symptoms occur constantly with intermittent worsening. The problem is fluctuating. Currently the patient states that the symptoms are moderate-severe. The pain is described as aching, stabbing and throbbing. The symptoms occur with activity. The patient is experiencing pain in the following location: medially based on the right side. He rates his current pain as 8/10. The symptoms are aggravated by descending stairs, exercise, squatting, standing and walking. Kevon states that the symptoms are relieved by ice, OTC medicines and rest. In addition to right knee pain the patient is also experiencing difficulty bending, locking and night pain. Pertinent negatives include chills, erythema, fever and tingling. The patient has had a previous x-ray. Prior NSAIDs include unspecified NSAIDS. He has been treated with visco (no relief) on the right side. Patient has had previous therapy. He underwent what sounds like a meniscal repair, possibly a root, in November, He notes this was complicated by a post op DVT in his calf treated with Lovenox. No underlying known hypercoagulable state noted. He is not on anti-coagulation now. He does not recall any issues with wound drainage, infection, or stiffness post op out of what would be expected. Functional Status Date Functional Assessmen t No Information Instructions Date Instruction Additional Infor soledad Given the concern fo r a tear of the meniscus or other pathology and the prior surgery history, in order to evaluate the knee and rule out other pathology I have ordered and MRI Arthrogram of the involved knee. We discussed the possible increase in discomfort for 12-24 hours after the procedure, the invasive nature of the arthrogram injection (and potential risk of infection), and the need for continued ice, activity modifications, and over the counter pain medications as allowed by the patient's PCP. I have recommended avoidance of painful occupational, recreational, and daily living activities pending results. I will see the patient back in the office once results are available and we will discuss further treatment options, both non-surgical or surgical, as indicated. Questions answered, verbalized understanding. Related to Pain in right knee Assessments Type Assessment Date assessment Pain in right knee impression We discussed that ba sed on the history of significant pain, limited function, exam findings showing limited flexion and/or extension, an effusion, joint line tenderness, meniscus exam signs, and imaging studies which show minimal degenerative change, no fractures, and overall good alignment I am concerned there may be a tear of the meniscus or other internal derangement of the involved knee. Mental Status Date Cognitive Assessment Orientation - [place] ed to time, place, person, situation.Normal Orientation Patient Care Teams Name Effective Dates (start - stop) Status Members No Information
--- OUTSIDE RECORDS SUMMARY | 2024-04-16 09:52 | XMS_ITS | Encounter Summary ---
Author Organization [facility] Address [address] [place] [address] Care Team Providers Care Solid State Tester Name Role Phone Marjorie Hurt MD Unavailable Satya Riley DO Primary Care Provider [phone] Maria De Jesus Ellis DO Primary Care Provider [phone] Encounter Details Date Type Department Care Team (Late st Contact Info) Description 12/04/2019 [email or web address] Message Enc [facility] Medical Group Family Medicine - [place] [address] [place] [address] Satya Riley, DO [address] [place], [place] [phone] RE: Other Social History Tobacco Use Types [...] have Coronavirus / COVID-19? No / Unsure 12/07/2019 10:17 AM CDT documented as of this encounter [...] CDT Office Visit [facility] THREE [facility], [address] [place] [address] Marjorie Hurt MD Three [facility]. 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 [place], [place] [address] PCP - General FAMILY PRACTICE 05/08/19 02/20/22 Maria De Jesus Ellis DO [address] [place], [place] [phone] PCP - General FAMILY PRACTICE 03/29/22 Marjorie Hurt MD [address] [place], [place] [phone] EP Vessel Crew Member CLINICAL CARDIAC ELECTROPHYSIOLOGY 02/21/17 documented as of this encounter
--- OUTSIDE RECORDS SUMMARY | 2024-04-16 09:52 | XMS_ITS | Encounter Summary ---
Author Organization [facility] Address [facility] [place] [address] Care Team Providers Care Diesel Mechanic Farm Name Role Phone Marjorie Hurt MD Unavailable Satya Riley DO Primary Care Provider [phone] Maria De Jesus Ellis DO Primary Care Provider [phone] Encounter Details Date Type Department Care Team (Late st Contact Info) Description 03/21/2021 Bizzuka Message Enc [facility] Family Medicine - [place] [address] [place] [address] Satya Riley, DO [address] [place] [address] Covid booster Social History Tobacco Use Types Packs/Day Years [...] COVID-19? No / Unsure 03/09/2021 10:30 AM MECHANISM INSPECTOR documented as of this encounter Functional Status [...] CDT Office Visit [facility] THREE [facility], [facility] [address] [place], [place] [phone] Marjorie Hurt MD Three [facility]. [facility] [address] [place], [place] [phone] documented as of this encounter Visit Diagnoses Not on filedocumented in this encounter Additional Health Concerns Assessment Noted Time PHQ-9 Depression Total Score: 0 12/06/19 21 4:23 PM CDT documented as of this encounter Care Teams Diesel Mechanic Farm Relationship Specialty Start Date End Date Satya Riley DO [address] [place] [address] PCP - General FAMILY PRACTICE 05/08/19 02/20/22 Maria De Jesus Ellis DO [address] [place], [place] [phone] PCP - General FAMILY PRACTICE 03/29/22 Marjorie Hurt MD [address] [place], [place] [phone] EP Retail Pharmacy Merchandiser CLINICAL CARDIAC ELECTROPHYSIOLOGY 02/21/17 documented as of this encounter
--- OUTSIDE RECORDS SUMMARY | 2024-04-16 09:52 | XMS_ITS | Encounter Summary ---
Author Organization [facility] Address [facility] [place] [address] Care Team Providers Care Quality Assurance Inspector Name Role Phone Marjorie Hurt MD Unavailable Satya Riley DO Primary Care Provider [phone] Maria De Jesus Ellis DO Primary Care Provider [phone] Encounter Details Date Type Department Care Team (Late st Contact Info) Description 11/11/2019 Crowdvance Message Enc [facility] Medical Group Multispecialty Care - [facility] [address] [place] [address] Nithin Sewell MD [address] [facility] [address] [place], [place] [phone] RE: Question Social History Tobacco Use Types [...] CDT Office Visit [facility] THREE [facility], [address] [place] [address] Marjorie Hurt MD Three [facility]. [address] [place], [place] [phone] documented as of this encounter Visit Diagnoses Not on filedocumented in this encounter Additional Health Concerns Infection Onset Date Last Indicated Resolved Time COVID-19 Rule Out 11/15/2019 11/15/2019 11/16/2019 3:22 PM CDT COVID-19 Rule Out 03/09/2021 03/09/2021 03/09/2021 2:44 PM GEOSPATIAL IMAGERY INTELLIGENCE ANALYST documented as of this encounter Care Teams Quality Assurance Inspector Relationship Specialty Start Date End Date Satya Riley DO [facility]. [address] [address] PCP - General FAMILY PRACTICE 05/08/19 02/20/22 Maria De Jesus Ellis DO [address] [place] [phone] PCP - General FAMILY PRACTICE 03/29/22 Marjorie Hurt MD [address] [id number] EP Flatbed Press Operator CLINICAL CARDIAC ELECTROPHYSIOLOGY 02/21/17 documented as of this encounter
--- OUTSIDE RECORDS SUMMARY | 2024-04-16 09:52 | XMS_ITS | Clinical Summary ---
Author Organization [facility] Address [address] [place] [address] Care Team Providers Care Business Systems Advisor Name Role Phone Unavailable Primary Care Provider Unavailabl e Source Comments [facility],non-owned Affiliates and Associated Physician Practices is amultiple site organization consisting of ambulatory clinics and hospital sitesin [place], [place], [place] and [place]. This disclosure is being madepursuant to the Care Everywhere program and may not contain all information available regarding this patient. Last updated 17.[facility] Social History Tobacco Use Types Packs/Day Years Used Date Smoking Tobacco: Never Assessed Sex and Gender Information Value Date Recorded Sex Assigned at Not on file Gender Identity Not on file Sexual Orientation Not on file Plan of Treatment Health Maintenance Due Date Last Done Comments LIPID TESTING 1983 HIV SCREENING 1998 HEPATITIS C SCREENING 03/24/2001 DTAP/TDAP/TD VACCINES (1 - Tdap) 2002 HEPATITIS B VACCINE (1 of 3 - 19+ 3-dose series) 2002 COVID-19 VACCINE ( - 2023-25 season) 2023 INFLUENZA VACCINE (#1) 2023 , 12/08/2019, 01/13/2019, Additional history exists DEPRESSION SCREENING 03/04/2024 ZOSTER VACCINE (1 of 2) 2033 HIB VACCINE Aged Out No longer eligi ble based on patient's age to complete this topic HPV VACCINE Aged Out No longer eligi ble based on patient's age to complete this topic MENINGOCOCCAL (Group B) VACCINE Aged Out No longer eligible based on patient's age to complete this topic MENINGOCOCCAL VACCINE Aged Out No junior cathy eligible based on patient's age to complete this topic PNEUMOCOCCAL VACCINE Aged Out No long er eligible based on patient's age to complete this topic
--- OUTSIDE RECORDS SUMMARY | 2024-04-16 09:52 | XMS_ITS | Encounter Summary ---
Author Organization [facility] Address [address] [place] [address] Care Team Providers Care Lamina Searcher Name Role Phone Marjorie Hurt MD Unavailable Satya Riley DO Primary Care Provider [phone] Maria De Jesus Ellis DO Primary Care Provider [phone] Encounter Details Date Type Department Care Team (Late st Contact Info) Description 02/19/2020 [employer] [place] Message Enc [facility] THREE [facility], [facility] [address] [place] [address] Marjorie Hurt MD Three [facility]. [address] [place] [address] RE: Test Results Social History Tobacco Use Types [...] have Coronavirus / COVID-19? No / Unsure 02/12/2020 7:49 AM DIRECTOR FINANCIAL SERVICES documented as of this encounter Functional Status [...] CDT Office Visit [facility] THREE [facility], [facility] [address] [place] [address] Marjorie Hurt MD Three [facility]. [facility] [address] [place], [place] [phone] documented as of this encounter Visit Diagnoses Not on filedocumented in this encounter Additional Health Concerns Infection Onset Date Last Indicated Resolved Time COVID-19 Rule Out 03/09/2021 03/09/2021 03/09/2021 2:44 PM DIRECTOR FINANCIAL SERVICES documented as of this encounter Care Teams Lamina Searcher Relationship Specialty Start Date End Date Satya Riley DO Three [facility]. [address] [place], [place] [phone] PCP - General FAMILY PRACTICE 05/08/19 02/20/22 Maria De Jesus Ellis DO [address] [place], [place] [phone] PCP - General FAMILY PRACTICE 03/29/22 Marjorie Hurt MD [address] [place], [place] [phone] EP Machine Striper CLINICAL CARDIAC ELECTROPHYSIOLOGY 02/21/17 documented as of this encounter
--- OUTSIDE RECORDS SUMMARY | 2024-04-16 09:52 | XMS_ITS | Encounter Summary ---
Author Organization [facility] Address [address] [place] [address] Care Team Providers Care Appeals Coordinator Name Role Phone Marjorie Hurt MD Unavailable Staya Riley DO Primary Care Provider [phone] Maria De Jesus Ellis DO Primary Care Provider [phone] Encounter Details Date Type Department Care Team (Late st Contact Info) Description 05/24/2020 Innovate/Protect Message Enc [facility] THREE [facility], [facility] [address] [place] [address] Kenrick Jimenez MD [facility]. [facility] [address] [place] [address] Question Social History Tobacco Use Types Packs/Day [...] documented in this encounter Progress Notes * Shawanda Hernandez RN - 05/24/2020 2:00 PM CDT See below documented in this encounter Plan of Treatment Upcoming Encounters Date Type Department Care Team (Late st Contact Info) Description 11/09/2024 8:00 AM CDT Office Visit [facility] THREE [facility], [facility] [address] [place] [address] Marjorie Hurt MD Three [facility]. [facility] [address] [place], [place] [phone] documented as of this encounter Visit Diagnoses Not on filedocumented in this encounter Additional Health Concerns Infection Onset Date Last Indicated Resolved Time COVID-19 Rule Out 03/09/2021 03/09/2021 03/09/2021 2:44 PM SUPPORT MANAGER documented as of this encounter Care Teams Appeals Coordinator Relationship Specialty Start Date End Date Satya Riley DO Three [facility]. [address] [phone] PCP - General FAMILY PRACTICE 05/08/19 02/20/22 Maria De Jesus Ellis DO [address] [place] [phone] PCP - General FAMILY PRACTICE 03/29/22 Marjorie Hurt MD [address] [address] EP Retail Client Solutions Analyst CLINICAL CARDIAC ELECTROPHYSIOLOGY 02/21/17 documented as of this encounter
--- OUTSIDE RECORDS SUMMARY | 2024-04-16 09:52 | XMS_ITS | Encounter Summary ---
Author Organization [facility] Address [facility] [place] [address] Care Team Providers Care Applications Development Analyst Name Role Phone Colleen Cortes NP Primary Care Provider [phone] Marjorie Hurt MD Unavailable Satya Riley DO Primary Care Provider [phone] Maria De Jesus Ellis DO Primary Care Provider [phone] Reason for Referral * Diagnostic Lab (Routine) - Closed Specialty Diagnoses / Procedures Referred By Contac t Referred To Contact CARDIOLOGY Diagnoses PVC (premature ventricular contraction) Procedures Holter Monitor 48 Hr Marjorie Hurt MD [facility] [address] [place] [address] Phone: tel: fax: Matt [facility] [address] [place] [address] Phone: tel: fax: Referral ID Status Reason Start Date Expiration Date Visits Re quested Visits Authorized [id number] Closed 08/12/2018 09/11/2018 1 1 Reason for Visit * Reason Onset Date Comments Concerns 08/11/2018 Encounter Details Date Type Department Care Team (Late st Contact Info) Description 08/11/2018 Lightspeed Message Enc [facility] [place] Three [facility], [place] [address] [place] [address] Marjorie Hurt MD Three [facility]. [address] [place] [address] Other Social History Tobacco Use Types Packs/Day [...] 6:23 PM FAMILIAT Narciso Gordon, RN Active * Do you have difficulty dressing or bathing? Answer Date of Assessment Author Status No 08/07/2018 6:23 PM Narciso Hagan, RN Active * Because of a physical, mental, or emotional condition, do you have difficulty doing errands alone such as visiting a doctor's office or shopping? Answer Date of Assessment Author Status No 08/07/2018 6:23 PM Narciso Hagan, RN Active documented as of this encounter Mental Status * Because of a physical, mental, or emotional condition, do you have serious difficulty concentrating, remembering, or making decisions? Answer Entry Date Author Status No 08/07/2018 6:23 PM Narciso Hagan, RN Active documented in this encounter Progress Notes * Kayleigh Latif RN - 08/12/2018 9:49 AM CDT I received a phone call from the patient asking to be seen today for an EKG because he does not feel good. Per Keiko meyer for an appt. I informed the patient to come in today around 11am to see the PA. The patient verbalized understanding and had no further questions. Message to the bilingual secretary. * Kayleigh Latif RN - 08/12/2018 8:54 AM CDT I called the patient to follow up on his PVCs. The patient states that the PVCs are the same. He does have chest discomfort with SOB. The patient states that he did have a hard time sleeping. I informed the patient that a 48hr monitor will be scheduled. I informed the patient that I will notify thePA. The patient verbalized understanding and had no further questions. Per Keiko QUAN - add Metoprolol 12.5mg HS PRN palpitations. I informed the patient of the above information. The patient verbalized understanding and had no further questions. * Keiko Box PA-C - 08/12/2018 8:17 AM CDT Kayleigh can you call patient and see how he is feeling. Arabella please order a 48 hour HM for PVCs. Luna Aden * Arabella Parks - 08/12/2018 8:08 AM CDT FORWARDED TO KADEEM NAPIER documented in this encounter Plan of Treatment Upcoming Encounters Date Type Department Care Team (Late st Contact Info) Description 11/09/2024 8:00 AM CDT Office Visit [facility] THREE [facility], [place] [address] [place] [address] Marjorie Hurt MD Three [facility]. [address] [place] [address] documented as of this encounter Results * Holter Monitor 48 Hr (08/12/2018) Marjorie Hurt MD HOLTER Final Result documented in this encounter Visit Diagnoses Diagnosis PVC (premature ventricular contraction)- Primary Other premature beats documented in this encounter Additional Health Concerns Infection Onset Date Last Indicated Resolved Time COVID-19 Rule Out 11/15/2019 11/15/2019 11/16/2019 3:22 PM CDT COVID-19 Rule Out 03/09/2021 03/09/2021 03/09/2021 2:44 PM METER REPAIRER documented as of this encounter Care Teams Applications Development Analyst Relationship Specialty Start Date End Date Colleen Cortes NP [address] [place] [address] PCP - General NURSE PRACTITIONER 02/19/17 05/07/19 Satya Riley DO [facility]. [facility] [address] [place], [place] [address] PCP - General FAMILY PRACTICE 05/08/19 02/20/22 Maria De Jesus Ellis DO [facility] [place], [place] [address] PCP - General FAMILY PRACTICE 03/29/22 Marjorie Hurt MD [facility]. [address] [place], [place] [address] EP Podiatry Assistant CLINICAL CARDIAC ELECTROPHYSIOLOGY 02/21/17 documented as of this encounter
--- OUTSIDE RECORDS SUMMARY | 2024-04-16 09:52 | XMS_ITS | Encounter Summary ---
Author Organization [facility] Address [facility] [place] [address] Care Team Providers Care Electrician Radio Name Role Phone Marjorie Hurt MD Unavailable Satya Riley DO Primary Care Provider [phone] Maria De Jesus Ellis DO Primary Care Provider [phone] Encounter Details Date Type Department Care Team (Latest Contact Info) Description 09/07/2019 R-Squared Message Enc [facility] Medical Group Multispecialty Care - [facility] [address] [facility] [place] [address] Nithin Sewell MD [address] [facility] [address] [place], [place] [phone] RE: Test Results Social History Tobacco Use [...] have Coronavirus / COVID-19? No / Unsure 09/10/2019 1:44 PM CDT documented as of this encounter [...] CDT Office Visit Matt [facility] n THREE [facility], [facility] [address] [place], [place] [address] Marjorie Hurt MD Three [facility]. [facility] [address] [place] [address] documented as of this encounter Visit Diagnoses Not on filedocumented in this encounter Additional Health Concerns Infection Onset Date Last Indicated Resolved Time COVID-19 Rule Out 11/15/2019 11/15/2019 11/16/2019 3:22 PM CDT COVID-19 Rule Out 03/09/2021 03/09/2021 03/09/2021 2:44 PM SET UP MECHANIC STAMPING MACHINES documented as of this encounter Care Teams Electrician Radio Relationship Specialty Start Date End Date Satya Riley DO Three [facility]. [address] [place], [place] [address] PCP - General FAMILY PRACTICE 05/08/19 02/20/22 Maria De Jesus Ellis DO [address] [place], [place] [phone] PCP - General FAMILY PRACTICE 03/29/22 Marjorie Hurt MD Three [facility]. [address] [place], [place] [phone] EP Special Trackwork Blacksmith CLINICAL CARDIAC ELECTROPHYSIOLOGY 02/21/17 documented as of this encounter
--- OUTSIDE RECORDS SUMMARY | 2024-04-16 09:52 | XMS_ITS | Encounter Summary ---
Author Organization [facility] Address [facility]0 [place] [address] Care Team Providers Care Mandarin Teacher Name Role Phone Marjorie Hurt MD Unavailable Maria De Jesus Ellis DO Primary Care Provider [phone] Encounter Details Date Type Department Care Team (Late st Contact Info) Description 10/21/2022 PostBeyond Message Enc [facility] Medical Group Family Medicine - [place] [address] [facility] [place] [id number] Maria De Jesus Ellis DO [address] [place] [address] Acid reflux/ heartburn Social History Tobacco Use Types Packs/Day Years [...] Status No 11/26/2019 11:00 PM CDT Faiza Cerws RN Active documented in this encounter Plan of Treatment Upcoming Encounters Date Type Department Care Team (Late st Contact Info) Description 11/09/2024 8:00 AM CDT Office Visit [facility] THREE [facility], [facility] [address] [place], [place] [phone] Marjorie Hurt MD [facility]. [address] [place], [place] [address] documented as of this encounter Visit Diagnoses Not on filedocumented in this encounter Additional Health Concerns Assessment Noted Time PHQ-9 Depression Total Score: 0 04/17/19 23 8:07 AM OPERATIONS TRAINER documented as of this encounter Care Teams Mandarin Teacher Relationship Specialty Start [place] [address] [place] [id number] PCP - General FAMILY PRACTICE 03/29/22 Marjorie Hurt MD [facility]. [facility] [address] [place] [address] EP Senior Auditor CLINICAL CARDIAC ELECTROPHYSIOLOGY 02/21/17 documented as of this encounter
--- OUTSIDE RECORDS SUMMARY | 2024-04-16 09:52 | XMS_ITS | Encounter Summary ---
Author Organization [facility] Address [facility] [place] [address] Care Team Providers Care Platform Attendant Name Role Phone Marjorie Hurt MD Unavailable Satya Riley DO Primary Care Provider [phone] Maria De Jesus Ellis DO Primary Care Provider [phone] Encounter Details Date Type Department Care Team (Late st Contact Info) Description 09/20/2020 [employer] Message Enc [place] THREE [facility] [address] [place] [address] Keiko Box PA-C [facility] [address] [place] [address] RE: Question Social History Tobacco Use Types [...] have Coronavirus / COVID-19? No / Unsure 08/29/2020 12:00 PM CDT documented as of this encounter [...] Office Visit Matt [facility]-O'Fallo piero THREE [facility], [facility] [address] [place] [address] Marjorie Hurt MD Three [facility]. [facility] [address] [place], [place] [phone] documented as of this encounter Visit Diagnoses Not on filedocumented in this encounter Additional Health Concerns Infection Onset Date Last Indicated Resolved Time COVID-19 Rule Out 03/09/2021 03/09/2021 03/09/2021 2:44 PM DESIGN SUPERVISOR Assessment Noted Time PHQ-9 Depression Total Score: 0 08/31/19 8:42 AM CDT documented as of this encounter Care Teams Platform Attendant Relationship Specialty Start Date End Date Satya Riley DO Three [facility]. [address] [id number] PCP - General FAMILY PRACTICE 05/08/19 02/20/22 Maria De Jesus Ellis DO [address] [place] [phone] PCP - General FAMILY PRACTICE 03/29/22 Marjorie Hurt MD [facility]. [address] [phone] EP White [employer] Tire Buffer CLINICAL CARDIAC ELECTROPHYSIOLOGY 02/21/17 documented as of this encounter
--- OUTSIDE RECORDS SUMMARY | 2024-04-16 09:52 | XMS_ITS | Encounter Summary ---
Author Organization [facility] Address [facility] [place] [address] Care Team Providers Care Underwear Hemmer Name Role Phone Marjorie Hurt MD Unavailable Satya Riley DO Primary Care Provider [phone] Maria De Jesus Ellis DO Primary Care Provider [phone] Encounter Details Date Type Department Care Team (Late st Contact Info) Description 10/26/2019 FreeLunched Message Enc [facility] Medical Group Multispecialty Care - [facility] [address] [facility] [address] [place] [address] Nithin Sewell MD [address] [facility] [address] [place], [place] [phone] RE: Other Social History Tobacco Use Types [...] Date Author Status No 08/07/2018 6:23 PM FAMILIAT Narciso Gordon, RN Active documented in this encounter Plan of Treatment Upcoming Encounters Date Type Department Care Team (Late st Contact Info) Description 11/09/2024 8:00 AM CDT Office Visit [facility] THREE [facility], [address] [place], [place] [phone] Marjorie Hurt MD [facility]. [address] [place], [place] [phone] documented as of this encounter Visit Diagnoses Not on filedocumented in this encounter Additional Health Concerns Infection Onset Date Last Indicated Resolved Time COVID-19 Rule Out 11/15/2019 11/15/2019 11/16/2019 3:22 PM CDT COVID-19 Rule Out 03/09/2021 03/09/2021 03/09/2021 2:44 PM POWER SYSTEM OPERATOR documented as of this encounter Care Teams Underwear Hemmer Relationship Specialty Start Date End Date Satya Riley DO [facility]. [address] [place], [place] [phone] PCP - General FAMILY PRACTICE 05/08/19 02/20/22 Maria De Jesus Ellis DO [facility] [place] [address] PCP - General FAMILY PRACTICE 03/29/22 Marjorie Hurt MD [place] [id number] [place] [address] EP Change Management Lead CLINICAL CARDIAC ELECTROPHYSIOLOGY 02/21/17 documented as of this encounter
--- OUTSIDE RECORDS SUMMARY | 2024-04-16 09:52 | XMS_ITS | Encounter Summary ---
Author Organization [facility] Address [facility] [place] [address] Care Team Providers Care Dental Hygienist Name Role Phone Marjorie Hurt MD Unavailable Satya Riley DO Primary Care Provider [phone] Maria De Jesus Ellis DO Primary Care Provider [phone] Encounter Details Date Type Department Care Team (Late st Contact Info) Description 09/02/2020 Amanda Huff DBA SecuRecovery Message Enc [facility] [address] [place] [address] Keiko Box PA-C [facility] [address] [place] [address] RE: Medication Questions Social History Tobacco Use [...] documented in this encounter Progress Notes * Keiko Box PA-C - 09/02/2020 8:44 AM CDT Please send new Rx of metoprolol to patients pharmacy. Thanks Keiko documented in this encounter Plan of Treatment Upcoming Encounters Date Type Department Care Team (Late st Contact Info) Description 11/09/2024 8:00 AM CDT Office Visit [facility] [place] [address] [place] [address] Marjorie Hurt MD [facility]. [place] [address] [place] [address] documented as of this encounter Visit Diagnoses Not on filedocumented in this encounter Additional Health Concerns Infection Onset Date Last Indicated Resolved Time COVID-19 Rule Out 03/09/2021 03/09/2021 03/09/2021 2:44 PM VICE PRESIDENT FIXED INCOME Assessment Noted Time PHQ-9 Depression Total Score: 0 08/31/19 8:42 AM CDT documented as of this encounter Care Teams Dental Hygienist Relationship Specialty Start Date End Date Satya Riley DO [facility]. [facility] [address] [place] [address] PCP - General FAMILY PRACTICE 05/08/19 02/20/22 [place] [address] [place] [id number] PCP - General FAMILY PRACTICE 03/29/22 Marjorie Hurt MD [facility]. [facility] [address] [place] [address] EP [employer] CLINICAL CARDIAC ELECTROPHYSIOLOGY 02/21/17 documented as of this encounter
--- OUTSIDE RECORDS SUMMARY | 2024-04-16 09:55 | XMS_ITS | Continuity of Care Document ---
Author Organization [facility] Address [address] [place] [address] Phone Care Team Providers Care Basket Weaver Name Role Phone Srikanth Calderon MD Unavailable [...] Date X-ray exam knee, 4+ views Office/outpatient visit,[facility] 2020 Advance Directives Directive Yes / No Effective Date File Name No Information Encounters Encounter Description Practice Location Reason(s) For Visit Diagnoses Date Provider Providers Copied on Encounter Office/outpat ient visit,new, [facility], [address], [place], [place], [id number], [place] tel:[phone] [facility] right knee pain (chief complaint) Pain in right knee Yumiko Duke. [address], [address], [place], [place], [id number], [place]. tel:[phone] Family History Family Member Type Diagnosis Age At Onset Father Problem (finding) Diabetes Mother Problem (finding) Diabetes Mother Problem (finding) Heart Disease Father Problem (finding) Cancer, unknown Father Problem (finding) Heart Disease Payers Payer name Insurance type Covered alliance party ID Mindy salmeron(s) Vamsi Linder [id number] Social History Type Description Quantity Date Captured [...] Mental Status Date Cognitive Assessment Orientation - Innis ed to time, place, person, situation.Normal Orientation Patient Care Teams Name Effective Dates (start - stop) Status Members No Information
[2024-04-16 10:05] LABS: EDINFLUASCREEN Positive (Negative); EDINFLUBSCREEN Negative (Negative)
== END 2024-04-16 10:09 | disposition home or self-care (01) ==
PROVIDERS: Emergency Provider Nurse Practitioner Family; PCP Family Medicine
DX: J10.1 Influenza due to other identified influenza virus with other respiratory manifestations (principal)
CPT/HCPCS: 87804; 99203; G0463